=== PATIENT | female | born 1985 | race Caucasian/White ===

== ENCOUNTER 2018-10-15 22:26 | Emergency (ER) | payer OTHER ==
[2018-10-16] MEDS: LORAZEPAM 2 MG INJ IV (02:29)
[2018-10-16 03:51] LABS: ADD MAN DIFF? NO
[2018-10-16 03:58] LABS: BASOPHILS % 0.2 % (0.0-2.0); EOSINOPHILS # 0.1 10^3/ul (0.0-0.5); HEMATOCRIT 41.6 % (37.0-47.0); HEMOGLOBIN 13.5 g/dl (12.0-16.0); LYMPHOCYTES # 2.1 10^3/ul (0.8-2.9); MEAN CORPUSCULAR HEMOGLOBIN 28.3 pg (29.0-33.0); MEAN CORPUSCULAR HGB CONC 32.5 g/dl (32.0-37.0); MEAN CORPUSCULAR VOLUME 87.2 fl (82.0-101.0); MEAN PLATELET VOLUME 10.1 fl (7.4-10.4); MONOCYTE # 0.4 10^3/ul (0.3-0.9); MONOCYTES % 4.2 % (0.0-11.0); NEUTROPHIL # 5.8 10^3/ul (1.6-7.5); NEUTROPHILS % 69.4 % (39.0-77.0); PLATELET COUNT 305 10^3/UL (140-415); RED BLOOD COUNT 4.77 10^6/ul (4.20-5.40)
[2018-10-16 03:58] LABS: WHITE BLOOD COUNT 8.3 10^3/ul (4.8-10.8)
[2018-10-16 04:02] LABS: INR 0.94; PROTIME 12.7 Sec (11.9-14.9)
[2018-10-16 04:03] LABS: PARTIAL THROMBOPLASTIN TIME 29.5 Sec (23.0-35.0)
[2018-10-16 04:24] LABS: ANION GAP 10 (5-13); BLOOD UREA NITROGEN 11 mg/dl (7-20); CARBON DIOXIDE 29 mmol/L (21-31); CHLORIDE 106 mmol/L (97-110); CREATININE 0.76 mg/dl (0.44-1.00); Estimated GFR > 60 mL/min (>60); SODIUM 145 mmol/L (135-144)
[2018-10-16 04:45] LABS: CALCIUM 9.7 mg/dl (8.4-10.2); GLUCOSE 111 mg/dl (70-220); POTASSIUM 3.2 mmol/L (3.5-5.1)
== END 2018-10-16 05:47 | disposition home or self-care (01) ==
LOC: E/R 22:26
DX: R51 Headache (principal); R07.9 Chest pain, unspecified; I10 Essential (primary) hypertension
CPT/HCPCS: 36415; 70450; 71045; 80048; 85025; 85610; 85730; 96374; 99285-25